=== PATIENT | female | born 1980 ===

== ENCOUNTER 2024-08-25 10:15 | Inpatient (IN) | payer OTHER ==
[~2024-08-25] VITALS: Ht 61 cm; Wt 68.0 kg
[2024-08-25 11:37] VITALS: BP 108/72
[2024-08-25] MEDS ORDERED: COZAAR100 MG PO (11:49)
[2024-08-25] MEDS ORDERED: ECOTRIN81 MG PO (11:49)
[2024-08-25] MEDS ORDERED: ATORVASTATIN CA10 MG PO (11:50)
[2024-08-25] MEDS ORDERED: ELAVIL (11:51)
[2024-08-25] MEDS ORDERED: PLAQUENIL (11:52)
[2024-08-25] MEDS ORDERED: DICY20TA PO (11:53)
[2024-08-25] MEDS ORDERED: OMEPRAZOLE20 MG PO (11:53)
[2024-08-25] MEDS ORDERED: VITAMIN D (11:54)
[2024-08-25] MEDS ORDERED: KLONOPIN (11:55)
[2024-09-05] MEDS ORDERED: ONDANSETRON HCL 2 MG/ML VIAL IV PRN (09:45)
[2024-09-05] MEDS ORDERED: ENALAPRILAT DIHYDRATE 1.25 MG/ML VIAL IV PRN (09:45)
[2024-09-05] MEDS ORDERED: DEXAMETHASONE SODIUM PHOSPHATE 4 MG/ML VIAL ONE (09:53)
[2024-09-05] MEDS ORDERED: MORPHINE SULFATE 4 MG/ML VIAL IV ONE (12:55)
[2024-09-05 16:22] VITALS: BP 123/62; O2SAT 95
[2024-09-05] MEDS ORDERED: ACETAMINOPHEN 500 MG GEL..CAP PO SCH (17:00)
[2024-09-05] MEDS ORDERED: CYCLOBENZAPRINE HCL 5 MG TABLET PO SCH (17:00)
[2024-09-05] MEDS ORDERED: TRAMADOL HCL 50 MG TABLET PO SCH (17:00)
[2024-09-05] MEDS ORDERED: CLONAZEPAM 0.5 MG TABLET PO SCH (17:00)
[2024-09-05] MEDS ORDERED: Calcium Carbonate 1 TAB TABLET PO SCH (21:00)
[2024-09-05] MEDS ORDERED: PANTOPRAZOLE SODIUM 40 MG/VIAL VIAL IV PUSH SCH (21:00)
[2024-09-06] VITALS: BP 122/57; O2SAT 100
[2024-09-06] MEDS ORDERED: LEVOTHYROXINE SODIUM 100 MCG TABLET PO SCH (06:00)
[2024-09-06] MEDS ORDERED: Calcium Carbonate 1 TAB TABLET PO ONE (06:00)
[2024-09-06 08:38] VITALS: BP 119/78; O2SAT 100
[2024-09-06] MEDS ORDERED: LOSARTAN POTASSIUM 100 MG TABLET PO SCH (09:00)
[2024-09-06] MEDS ORDERED: AMITRIPTYLINE HCL 25 MG TABLET PO SCH (09:00)
[2024-09-06] MEDS ORDERED: CALCITRIOL 0.5 MCG CAPSULE PO SCH (09:00)
[2024-09-06] MEDS ORDERED: ATORVASTATIN CALCIUM 10 MG TABLET PO SCH (09:00)
== END 2024-09-06 11:35 | disposition home or self-care (01) | DRG 627 ==
LOC: O/R 09-05 06:42 → SURG 09-05 06:42 → SURH 09-05 07:00 → SURG 09-05 16:14
PROVIDERS: ADMIT Surgery; ATTEND Surgery
PROC: 0GTH0ZZ Resection of Right Thyroid Gland Lobe, Open Approach (ICD-10-PCS; principal; 2024-09-05 07:00)
DX: C73 Malignant neoplasm of thyroid gland (principal)